=== PATIENT | female | born 1960 | race Caucasian/White ===

== ENCOUNTER 2023-01-31 07:03 | Day surgery (SDC) | payer BC ==
[~2023-01-31 07:03] MED LIST: Lactated Ringers 1,000 ML IV SCH; Lidocaine 1%/Sod Bicarbonate in NS 8.4% 1 ML Syringe IDERM PRN; Sodium Chloride 0.9% 10 ML Syringe FLUSH PRN; Sodium Chloride 0.9% 10 ML Syringe FLUSH SCH
[2023-01-31] MEDS ORDERED: Bupivacaine 0.25%/EPINEPHrine 1:200,000 30 ML SDV ONE (07:14)
[2023-01-31] MEDS ORDERED: Rocuronium 50 MG/5 ML Vial ONE (07:22)
[2023-01-31] MEDS ORDERED: Lidocaine 1% 4 ML ONE (07:22)
[2023-01-31] MEDS ORDERED: fentaNYL 100 MCG/2 ML SDV ONE (07:23)
[2023-01-31] MEDS ORDERED: Propofol 200 MG/20 ML SDV ONE (07:23)
[2023-01-31] MEDS: Lactated Ringers 1,000 ML IV SCH ×2 (07:30→09:09)
[2023-01-31] MEDS ORDERED: ceFAZolin 2 GM Vial ONE (07:36)
[2023-01-31] MEDS ORDERED: Sodium Chloride 0.9% 10 ML Syringe FLUSH PRN (07:54)
[2023-01-31] MEDS ORDERED: Lidocaine 1%/Sod Bicarbonate in NS 8.4% 1 ML Syringe IDERM PRN (07:54)
[2023-01-31 08:00] LABS: ESTIMATED GFR 83 mL/min (>60)
[2023-01-31] MEDS ORDERED: Ondansetron 4 MG/2 ML SDV ONE (08:03)
[2023-01-31] MEDS ORDERED: Dexamethasone 4 MG/ML 5 ML MDV ONE (08:03)
[2023-01-31] MEDS ORDERED: Ketorolac 30 MG/ML SDV ONE (08:03)
[2023-01-31] MEDS ORDERED: HYDROmorphone 0.5 MG/0.5 ML Syringe ONE (08:08)
[2023-01-31] MEDS ORDERED: ePHEDrine 50 MG/ML SDV ONE (08:24)
[2023-01-31] MEDS ORDERED: Ondansetron 4 MG/2 ML SDV IVPUSH PRN (08:44)
[2023-01-31] MEDS ORDERED: Acetaminophen/oxyCODONE 325-5 MG Tab PO PRN (08:44)
[2023-01-31] MEDS ORDERED: Ibuprofen 600 MG Tab PO PRN (14:00)
== END 2023-01-31 10:54 | disposition home or self-care (01) ==
LOC: JD.SDS 07:03
PROVIDERS: ATTEND Obstetrics & Gynecology
DX: N81.10 Cystocele, unspecified (principal); N81.6 Rectocele; N95.2 Postmenopausal atrophic vaginitis; N36.2 Urethral caruncle; E78.5 Hyperlipidemia, unspecified; G47.00 Insomnia, unspecified; Z90.710 Acquired absence of both cervix and uterus; Z88.1 Allergy status to other antibiotic agents; Z79.899 Other long term (current) drug therapy
CPT/HCPCS: 36415; 57260; 82565; 85025; J0690; J1100; J1170; J1885; J2405; J2704; J3010; J7120; 00942; J3490